=== PATIENT | female | born 1980 | race Hispanic/Latino ===

== ENCOUNTER 2017-08-27 05:53 | Day surgery (SDC) | payer MEDICAID ==
[2017-08-26 10:45] VITALS: BP 139/87
[2017-08-26 11:01] LABS: BASOPHILS % (AUTO) 0.8 % (0.0-5.0); EOSINOPHILS % (AUTO) 0.5 % (0.0-8.0); HEMATOCRIT 41.3 % (36-48); LYMPHOCYTES % (AUTO) 30.6 % (21.0-51.0); MEAN CORPUSCULAR HEMOGLOBIN 27.9 pg (27.0-33.0); MEAN CORPUSCULAR HGB CONC 33.4 g/dL (32.0-36.0); MEAN CORPUSCULAR VOLUME 83.7 fL (79-99); MONOCYTES % (AUTO) 5.7 % (3.0-13.0); NEUTROPHILS % (AUTO) 62.4 % (40.0-77.0); PLATELET COUNT (AUTO) 248 K/uL (130-400); RED BLOOD CELL COUNT(AUTO) 4.93 MIL/uL (4.00-5.50); RED CELL DISTRIBUTION WIDTH 13.3 % (11.0-15.5); WHITE BLOOD COUNT (AUTO) 7.1 K/uL (4.8-10.8)
[2017-08-27] VITALS (14 sets, daily range): BP systolic 97–169; BP diastolic 52–95
[~2017-08-27] VITALS: Ht 168.9 cm; Wt 73.0 kg
[2017-08-27] MEDS ORDERED: STRONG IODINE SOLUTION 30ML BOTTLE ONE (06:36)
[2017-08-27] MEDS ORDERED: ACETIC ACID 0.25% 1,000 ML IRRIG.SOLN ONE (07:13)
[2017-08-27] MEDS ORDERED: VASOPRESSIN 20 UNITS/ML 1ML VIAL ONE (07:13)
[2017-08-27] MEDS ORDERED: MIDAZOLAM HCL 1 MG/ML 2ML VIAL ONE (07:20)
[2017-08-27] MEDS ORDERED: FENTANYL CITRATE PF 50 MCG/1 ML 2ML VIAL ONE (07:20)
[2017-08-27] MEDS ORDERED: LACTATED RINGERS 1000ML 1,000 ML IV SCH (08:00)
[2017-08-27] MEDS ORDERED: KETOROLAC TROMETHAMINE 30MG/ML ONE (08:27)
[2017-08-27] MEDS ORDERED: MEPERIDINE-PF 25 MG/ML SYG ONE ×2 (08:28→08:37)
== END 2017-08-27 09:50 ==
LOC: DAH 05:53
PROVIDERS: ATTEND Obstetrics & Gynecology
DX: N87.1 Moderate cervical dysplasia (principal); N81.3 Complete uterovaginal prolapse
CPT/HCPCS: 36415; 57522; 84703; 85025; 86850; 86900; 86901; 88307; A4351; A4510; A4600; A4606; J1885; J2175 ×2; J2250; J3010; J3490; J7120

== ENCOUNTER 2024-07-23 14:25 | Emergency (ER) | payer SELFPAY ==
[~2024-07-23] VITALS: Ht 162.6 cm; Wt 72.6 kg
[2024-07-23 14:33] VITALS: TEMP 98.3
--- NOTE | 2024-07-23 14:41 | ERN ---
ED Note History of Present Illness Stated Complaint: SWELLING TO HANDS AND FEET Chief Complaint: Skin Rash/Abscess Time Seen by MD: 14:28 Dictation: PATIENT IS A 44-YEAR-OLD FEMALE COMING IN TODAY WITH A FINE MACULAR RASH THAT IS ITCHY FOR THE LAST 3-4 DAYS. SHE SAID THE RASH COMES AND GOES HOWEVER SHE CURRENTLY DENIES ANY NEW SOAPS DETERGENTS CLOTHES BED CLOTHES ETC.. SHE STATES SHE TOOK BENADRYL ONCE PRIOR TO ARRIVAL ON SATURDAY FOR THE ITCHING. SAID IT DID NOT HELP. ADDITIONALLY SHE STATES SHE HAS JOINT PAIN TO SEVERAL JOINTS WITHOUT FEVER CHILLS NO SORE THROAT. SHE DENIES HAVING A PRIMARY CARE DOCTOR. Allergies: Coded Allergies: No Known Drug Allergies (Verified Allergy, Unknown, 06/04/17) Home Meds No Active Prescriptions or Reported Meds Past Medical History Past Medical History: No Pertinent History Surgical History: None PSYCH History: no pertinent psych hx History: Not Applicable RN Note Reviewed/Agreed w/PFSH: Yes Review of System Dictation CONSTITUTIONAL: NEGATIVE EXCEPT FOR HPI HEAD/FACE: NEGATIVE EXCEPT FOR HPI EENT: NEGATIVE EXCEPT FOR HPI RESPIRATORY: NEGATIVE EXCEPT FOR HPI GASTROINTESTINAL/ABDOMINAL: NEGATIVE EXCEPT FOR HPI GENITOURINARY: NEGATIVE EXCEPT FOR HPI MUSCULOSKELETAL: NEGATIVE EXCEPT FOR HPI POLY JOINT PAIN BILATERALLY/RASH INTEGUMENTARY: NEGATIVE EXCEPT FOR HPI NEUROLOGICAL/PSYCH: NEGATIVE EXCEPT FOR HPI HEMATOLOGIC/LYMPHATIC: NEGATIVE EXCEPT FOR HPI ALL SYSTEMS NEGATIVE, EXCEPT NOTED ABOVE. 13 POINT REVIEW OF SYSTEMS ASSESSED AND ALL NEGATIVE EXCEPT FOR ABOVE. Initial Vital Sign VS Vital Signs Date Time Temp Pulse Resp B/P (MAP) Pulse Ox O2 Delivery O2 Flow Rate FiO2 07/23/24 14:33 98.2 91 16 159/91 100 Room Air 0 07/23/24 14:33 21 Physical Exam Dictation VITAL SIGNS REVIEWED GENERAL APPEARANCE: ALERT, ORIENTED X 3, MILD ACUTE DISTRESS, WELL DEVELOPED, NOURISHED. HEAD AND FACE: NON-TRAUMATIC. EYES: PERRL, PINK CONJUNCTIVAS, EYELID NO TRAUMA, ANTERIOR CHAMBER WITH ARCUS SENILIS. EARS: PINNAS INTACT AND NO SIGNS OF TRAUMA OR ERYTHEMA EAR CANALS CLEAR AND NO DISCHARGE TM NO ERYTHEMA NOSE: NO DISCHARGE, NO BLEEDING. OROPHARYNX: MOUTH NORMAL, TONGUE PINK, VOICE CLEAR, NO ANGIOEDEMA PHARYNX CLEAR,NO ERYTHEMA, TONSILS NO EXUDATES, NO ABSCESSES NOTED, MUCOUS M EMBRANE MOIST NECK: SUPPLE, NON-TENDER, NO THYROMEGALY, NO MASSES, NO JVD, NO BRUITS BREAST:DEFERRED CHEST:NO TENDERNESS, NO CREPITUS, NO PARADOXICAL MOVEMENT, NO RETRACTIONS LUNGS:CLEAR, WELL-VENTILATED, SYMMETRIC, NO RALES, NO WHEEZING, NO RHONCHI, NO STRIDOR, GOOD BREATH SOUNDS BILATERALLY HEART: REGULAR RATE, REGULAR RHYTHM, NO MURMUR, NO GALLOPS VASCULAR: NO PERIPHERAL EDEMA, ABDOMEN: SOFT, POSITIVE BOWEL SOUNDS, NONDISTENDED, NO GUARDING, NONTENDER, NO REBOUND, NO MASSES NO HEPATOMEGALY, NO SPLENOMEGALY, NO PIZANO'S SIGN, NO HERNIAS. RECTAL: DEFERRED GENITAL: DEFERRED NEUROLOGICAL: NORMAL SPEECH, MOTOR FUNCTION INTACT, SENSORY FUNCTION INTACT MUSCULOSKELETAL: NECK NONTENDER, FULL RANGE OF MOTION, BACK NONTENDER, FULL RANGE OF MOTION, EXTREMITIES: NONTENDER, FULL RANGE OF MOTION FULL RANGE OF MOTION ALL EXTREMITIES SKIN: COLOR PINK, DRY, NO TURGOR, FINE CONFLUENT RASH TO ARMS. LYMPHATIC: DEFERRED Results (Laboratory/Radiology) Labs Reviewed?: Yes ED Course ED Course Orders Procedure Category Date Status Time Dexamethasone 4mg/Ml PHA 07/23/24 Complete 1ml Vial (Dexametha 15:00 Ketorolac 60mg/2ml PHA 07/23/24 Complete (Toradol 60mg/2ml) 15:00 Current Medications Medications (Trade) Dose Ordered Sig/Valerie Route PRN Reason Start Time Stop Time Status Last Admin Dose Admin Dexamethasone Sodium Phosphate (dexaMETHasone 4MG/ML 1ML VIAL) 8 mg ONCE ONCE IM 07/23/24 15:00 07/23/24 15:01 DC 07/23/24 15:20 Ketorolac Tromethamine (toRADol 60MG/ 2ML) 60 mg ONCE ONCE IM 07/23/24 15:00 07/23/24 15:01 DC 07/23/24 15:20 Vital Signs Date Time Temp Pulse Resp B/P (MAP) Pulse Ox O2 Delivery O2 Flow Rate FiO2 07/23/24 14:33 98.2 101 16 159/91 98 Room Air* 0 21 07/23/24 14:33 98.2 91 16 159/91 100 Room Air 0 1532, patient discharged home with diagnosis of arthralgia and dermatitis. States she feels better after treatment. We will be discharged home with ketorolac and Medrol Dosepak. Told to see her primary care doctor Medical Decision Making MDM Medical discharge making based on empiric treatment for arthralgia and nonspecific dermatitis. Patient discharged home with the instructions take Benadryl 50 mg/vjsl-voa-[id number] every 6 hours as needed for itching Given Medrol Dosepak and ibuprofen for joint pain. DX & DISP Disposition: Discharge Departure Impression: Primary Impression: Dermatitis Additional Impression: Arthralgia Condition: Stable Scripts Ibuprofen (Ibuprofen 800 mg Tab) 800 Mg Tab 800 MG PO Q8H PRN for fever or pain, #30 TAB 0 Refills Prov: ADRIEL CUNNINGHAM NP 07/23/24 Methylprednisolone (Medrol) 4 Mg Tab.ds.pk 1 TAB PO AD for 6 Days, #21 TAB 0 Refills 6 on day 1 then reduce by one tablet daily until gone Prov: ADRIEL CUNNINGHAM NP 07/23/24 Additional Instructions: Follow-up with primary care provider in 1 to 2 days. Take medications as directed here in the emergency room. Okay to continue home medications unless otherwise discussed during your visit in the emergency room today. Return to your nearest emergency room if symptoms worsen or if there is no improvement. Call 911 if you need immediate assistance. Take Tylenol or Motrin [id number] as needed and if no contraindications are present. Increase oral hydration. A wound culture or urine culture was ordered here in the emergency room department please follow-up with primary care provider and advise them to get repeat ports from our facility. If you had any Isaiah wrap/splints that were applied here, please do not remove them until you see your primary care or specialty. Take ibuprofen every8 hours with food for the next two days. Take Medrol Dosepak as directed until gone. Suggest Benadryl 50 mg/[id number]-[id number] every 6-8 hours as needed for itching or rash. See your primary care doctor for follow up. Referrals: PARIS CAMPOS MD (PCP) Time of Disposition: 15:34 I have reviewed the case, and I agree with, Diagnosis and Plan ADRIEL CUNNINGHAM NP Jul 23, 2024 14:41
[2024-07-23] MEDS: ketOROlac 60 MG VIAL (30MG/ML) IM ONE (15:20)
[2024-07-23] MEDS: dexaMETHasone SOD PHOSPHATE 4 MG/ML 1ML VIAL IM ONE (15:20)
[2024-07-23 15:30] VITALS: BP 129/78; PULSE 81; RESP 16; O2SAT 100
[2024-07-23] MEDS ORDERED: METH4TAB3 PO (15:35)
[2024-07-23] MEDS ORDERED: IBUP-2077 PO (15:35)
== END 2024-07-23 15:53 | disposition home or self-care (01) ==
LOC: EDH 14:25
DX: L30.9 Dermatitis, unspecified (principal); M25.50 Pain in unspecified joint
CPT/HCPCS: 99284; 96372 ×2; J1100; J1885

== ENCOUNTER 2024-10-20 15:36 | Emergency (ER) | payer SELFPAY ==
[~2024-10-20] VITALS: Ht 165.1 cm; Wt 81.6 kg
[~2024-10-20 15:36] MED LIST: IBUP-2077 PO; METH4TAB3 PO
[2024-10-20 16:29] VITALS: BP 155/80; PULSE 85; RESP 16; TEMP 98.3; O2SAT 98
[2024-10-20 16:30] LABS: RAPID GROUP A STREP negative (NEGATIVE)
[2024-10-20 16:40] LABS: COVID19 (SARS ANTIGEN RAPID) PRESUMPTIVE NEGATIVE (NEGATIVE); INFLUENZA TYPE A Negative For Type A (NEGATIVE)
[2024-10-20 16:53] LABS: INFLUENZA TYPE B Positive For Type B (NEGATIVE)
[2024-10-20] MEDS ORDERED: OSEL75 PO (17:06)
--- NOTE | 2024-10-20 17:07 | ERN ---
General Chief Complaint: Cough Stated Complaint: FLU LIKE SYMPTOMS Time Seen by MD: 15:36 Source: patient History of Present Illness Initial Comments Patient is a 44-year-old female coming in to be evaluated for URI symptoms. Patient was exposed to influenza B by family members. She states he has been having this cough and congestion for two days. 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 HEAD/FACE: No signs of trauma. EENT: No eye pain, no blurred vision, no tearing, no double vision, no ear pain, no ear discharge, no nose pain, no nasal congestion, no throat pain, no throat swelling, no mouth pain. RESPIRATORY: No cough, no orthopnea, no SOB, no stridor, no wheezing. CARDIOVASCULAR: No chest pain, no edema, no palpitations, no syncope. GASTROINTESTINAL/ABDOMINAL: No abdominal pain, no constipation, no diarrhea, no nausea, no vomiting. GENITOURINARY: No abnormal discharge, no dysuria, no frequent urination, no hematuria. No complaints of pain in the genitals. MUSCULOSKELETAL: No back pain, no gout, no joint pain, no joint swelling, no muscle pain, no muscle stiffness, no neck pain. INTEGUMENTARY: No change in color, no change in hair/nails, no dryness, no lesion, no lumps, no rash. NEUROLOGICAL/PSYCH: No anxiety, not depressed, no emotional problem, no headache, no numbness, no pre-existing deficit, no history of seizures, no tremors, no weakness. HEMATOLOGIC/LYMPHATIC: Not anemic, no history of blood clots, no apparent bleeding, no bruising, glands not swollen. All Systems Negative, Except as Noted. Physical Exam Physical Exam Dictation VITAL SIGNS: Reviewed. GENERAL APPEARANCE: Alert, oriented x3, no acute distress, obese. HEAD AND FACE: Non-traumatic. EYES: PERRL, pink conjunctivas, eyelid no trauma, anterior chamber clear. EARS: Pinnas intact and no signs of trauma or erythema. Ear canals clear and no discharge. TMs no erythema. NOSE: No discharge, no bleeding. OROPHARYNX: Mouth normal, teeth no caries, tongue pink. Pharynx clear, no erythema. Tonsils no exudates, no abscesses noted. Mucous membrane moist. NECK: Supple, non-tender, no thyromegaly, no masses, no JVD, no bruits. BREAST: Deferred. CHEST: No tenderness, no crepitus, no paradoxical movement, no retractions. LUNGS: Clear, well-ventilated, symmetric, no rales, no wheezing, no rhonchi, no stridor, good breath sounds bilaterally. HEART: Regular rate, regular rhythm, no murmur, no gallops. VASCULAR: No peripheral edema. ABDOMEN: Soft, positive bowel sounds, nondistended, no guarding, nontender, no rebound, no masses no hepatomegaly, no splenomegaly, no Seymour's sign, no hernias. RECTAL: Deferred. GENITAL: Deferred. NEUROLOGICAL: Normal speech, gross motor function intact, gross sensory function intact. MUSCULOSKELETAL: Neck nontender, full range of motion, back nontender, full range of motion. EXTREMITIES: Nontender, full range of motion. SKIN: Color pink, dry, no turgor, no rash, no lacerations, no abrasions, no contusions. LYMPHATICS: Deferred. Results Laboratory and Microbiology Lab and Micro Result Laboratory Tests Test 10/20/24 15:47 Influenza Type A Antigen Negative For Type A Influenza Type B Antigen Positive For Type B SARS-CoV-2 Antigen (Rapid) PRESUMPTIVE NEGATIVE Group A Streptococcus Rapid negative (NEGATIVE) Labs Reviewed?: Yes MDM MDM: Differential diagnosis: Influenza, COVID, flu Patient is a 44-year-old female in to be evaluated for URI symptoms. Patient states he was exposed to influenza B five to some family members. Throughout ER visit patient has been stable laboratory workup positive for influenza B. Patient will be discharged in stable condition with a diagnosis of influenza B Tamiflu healing provided. I did advised her appropriate follow up with PCP in one two days for ongoing evaluation and management of is to be. ED Course Orders Procedure Category Date Status Time Rapid (Group A Strep) LAB 10/20/24 Complete 15:48 Covid19 (Sars Antigen LAB 10/20/24 Complete Rapid) 15:48 Influenza Type A & B, LAB 10/20/24 Complete Rapid 15:48 Vital Signs Date Time Temp Pulse Resp B/P (MAP) Pulse Ox O2 Delivery O2 Flow Rate FiO2 10/20/24 16:29 98.2 85 16 155/80 98 Room Air* 0 21 10/20/24 15:45 98.8 89 16 158/83 98 Room Air DX & DISP Disposition: Discharge Departure Impression: Primary Impression: Influenza B Condition: Stable Scripts Oseltamivir Phosphate (Tamiflu) 75 Mg Cap 1 CAP PO BID for 5 Days, #10 CAP 0 Refills Prov: JAM ROCHA MD 10/20/24 Additional Instructions: FOLLOW-UP WITH PRIMARY CARE PROVIDER IN 1 TO 2 DAYS. TAKE MEDICATIONS DIRECTED HERE IN THE EMERGENCY ROOM. OKAY TO CONTINUE HOME MEDICATIONS UNLESS OTHERWISE DISCUSSED DURING YOUR VISIT IN THE EMERGENCY ROOM TODAY. RETURN TO YOUR NEAREST EMERGENCY ROOM IF SYMPTOMS WORSEN OR IF THERE IS NO IMPROVEMENT. CALL 911 IF YOU NEED IMMEDIATE ASSISTANCE. TAKE TYLENOL [id number] NEEDED AND IF NO CONTRAINDICATIONS ARE PRESENT. INCREASE ORAL HYDRATION. A WOUND CULTURE OR URINE CULTURE WAS ORDERED HERE IN THE EMERGENCY ROOM DEPARTMENT PLEASE FOLLOW-UP WITH PRIMARY CARE PROVIDER AND ADVISE THEM TO GET REPEAT PORTS FROM OUR FACILITY. IF YOU HAD ANY LYNNE WRAP/SPLINTS THAT WERE APPLIED HERE, PLEASE DO NOT REMOVE THEM UNTIL YOU SEE YOUR PRIMARY CARE OR SPECIALTY. Referrals: Referrals: PARIS CAMPOS MD (PCP) Time of Disposition: 17:06 JAM ROCHA MD Oct 20, 2024 17:07
== END 2024-10-20 17:32 | disposition home or self-care (01) ==
LOC: EDH 15:36
DX: J10.1 Influenza due to other identified influenza virus with other respiratory manifestations (principal); Z20.822 Contact with and (suspected) exposure to COVID-19
CPT/HCPCS: 87426; 87804; 87880; 99283